=== PATIENT | male | born 2005 | race Caucasian/White ===

== ENCOUNTER 2024-01-17 01:46 | Emergency (ER) | payer MEDICAID, SELFPAY ==
[2024-01-17 01:47] VITALS: BP 115/96; PULSE 132; RESP 16; TEMP 37.3; O2SAT 98; BMI 25.1
--- NOTE | 2024-01-17 02:05 | CT_ITS ---
PROCEDURE INFORMATION: Exam: CT Head Without Contrast Exam date and time: 01/17/2024 2:59 AM Age: 18 years old Clinical indication: Altered mental status/memory loss; Additional info: AMS TECHNIQUE: Imaging protocol: Computed tomography of the head without contrast. Radiation optimization: All CT scans at this facility use at least one of these dose optimization techniques: automated exposure control; mA and/or kV adjustment per patient size (includes targeted exams where dose is matched to clinical indication); or iterative reconstruction. COMPARISON: No relevant prior studies available. FINDINGS: Brain: Prominent hypodense area within the inferior right cerebellar hemisphere best noted on series 6 images 19 through 22. No hemorrhage. Unremarkable white matter. No mass effect. Cerebral ventricles: No ventriculomegaly. Paranasal sinuses: Mucous retention cysts within both maxillary sinuses greater on the right. Mastoid air cells: Visualized mastoid air cells are well aerated. Orbital cavities: The orbital contents are symmetric and normal. Bones: Unremarkable. No acute fracture. Soft tissues: Unremarkable. IMPRESSION: Hypodense region within the inferior right cerebellar hemisphere could represent evolving infarct or edema secondary to an underlying lesion. Further evaluation with unenhanced and enhanced MR is recommended.
[2024-01-17] MEDS: LACTATED RINGERS 1000ML 1,000 ML 999 ML IV (02:16)
[2024-01-17] MEDS: LORazepam 2MG/ML VIAL 2 MG IV (02:16)
[2024-01-17 02:19] LABS: Basophils # 0.1 K/mm3 (0-0.2); Basophils % 0.9 % (0.1-2.0); Eosinophils # 0.1 K/mm3 (0.0-0.4); Eosinophils % 0.7 % (0.1-12.0); Hematocrit 47.6 % (42.0-52.0); Hemoglobin 16.8 g/dL (14.1-18.0); Lymphocytes # 1.9 K/mm3 (0.7-4.5); Lymphocytes % 16.8 % (10-50); Mean Corpuscular HGB Conc 35.4 g/dL (31.8-35.4); Mean Corpuscular Hemoglobin 31.3 pg (27.0-31.2); Mean Corpuscular Volume 88.4 fl (80-94); Mean Platelet Volume 8.3 fl (7.4-10.4); Monocytes # 0.8 K/mm3 (0.1-1.0); Monocytes % 7.5 % (1.7-9.3); Neutrophils # 8.2 K/mm3 (1.8-7.8); Neutrophils % 74.2 % (37.0-80.0); Platelet Count 273 K/mm3 (142-424); Red Blood Count 5.38 M/mm3 (4.60-6.20)
--- NOTE | 2024-01-17 02:22 | ECG_ITS ---
APPROVED REPORT Exam: Resting ECG HR:128 bpm ECG Measurements Heart Rate 128 AXES OH 104 P 67 QRSd 90 QRS 67 QT 302 T -25 QTc 378 Conclusion SINUS TACHYCARDIA WITH SHORT OH INTERVAL WITH OCCASIONAL SUPRAVENTRICULAR PREMATURE COMPLEXES NONSPECIFIC ST & T-WAVE ABNORMALITY No STEMI Electronically signed by : PATRICK MARROQUIN, 01/17/2024 06:33:46
[2024-01-17 02:26] VITALS: BP 138/78; PULSE 139; RESP 17; O2SAT 99
[2024-01-17 02:26] LABS: Albumin Level 5.2 g/dl (3.5-5.0); Chloride 105 mmol/L (98-107); Potassium 3.2 mmoL/L (3.5-5.1); Sodium 140 mmol/L (136-145)
[2024-01-17 02:28] LABS: Alanine Aminotransferase 52 U/L (12-78); Blood Urea Nitrogen 15 mg/dl (9-20); Creatinine Clearance Estimated 129 mL/min (50-200); Estimated Glomerular Filt Rate 95 ml/min (>60); GFR (African American) 115 ML/MIN (>60)
[2024-01-17 02:29] LABS: Albumin/Globulin Ratio 1.5 (1.1-1.8); Alkaline Phosphatase 65 U/L (38-126); Anion Gap 15.2 mEq/L (5-15); Aspartate Amino Transferase 42 U/L (17-59); Bilirubin,Total 1.5 mg/dl (0.2-1.3); Calcium 9.9 mg/dl (8.4-10.2); Carbon Dioxide 23 mmol/L (22.0-30.0); Globulin 3.5 g/dL (1.3-3.2); Glucose 92 mg/dl (74-100); Total Protein,Serum 8.7 g/dl (6.3-8.2)
[2024-01-17 02:31] LABS: Acetaminophen < 10 ug/ml (10-30); Ethyl Alcohol < 10 mg/dl (0-10); Salicylate < 1.0 mg/dL (2.0-20.0)
[2024-01-17 02:46] LABS: Free T4 (Free Thyroxine) 1.86 ng/dl (0.78-2.19)
--- NOTE | 2024-01-17 02:46 | PC.NURSE ---
pt reports he can not give us a urine specimen at this time
--- NOTE | 2024-01-17 02:49 | PC.NURSE ---
patient to radiology
--- NOTE | 2024-01-17 02:56 | PC.NURSE ---
pt to CT at this time
[2024-01-17 03:00] LABS: Thyroid Stimulating Hormone 0.88 uIU/mL (0.465-4.68)
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
--- NOTE | 2024-01-17 03:07 | PC.NURSE ---
pt back to room from CT scan.
[2024-01-17 03:10] VITALS: BP 163/79; PULSE 124; RESP 15; O2SAT 100
[2024-01-17] MEDS: LORazepam 2MG/ML VIAL 1 MG IV (03:31)
[2024-01-17] MEDS: HALOPERIDOL LACTATE 5 MG/ML VIAL 2 MG IV (04:00)
--- NOTE | 2024-01-17 04:18 | ECG_ITS ---
APPROVED REPORT Exam: Resting ECG HR:125 bpm ECG Measurements Heart Rate 125 AXES AR 112 P 67 QRSd 97 QRS 82 QT 400 T 5 QTc 474 Conclusion Sinus tachycardia with occasional PVCs NONSPECIFIC ST & T-WAVE ABNORMALITY No STEMI Interval development of RSR' in aVR Electronically signed by : PATRICK MARROQUIN, 01/18/2024 06:11:16
--- NOTE | 2024-01-17 04:32 | PC.NURSE ---
call to [facility] for transfer to their facility
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
[2024-01-17] MEDS: HALOPERIDOL LACTATE 5 MG/ML VIAL IM (04:59)
[2024-01-17] MEDS: MIDAZOLAM 5MG/ML 1ML VIAL 5 MG IM (04:59)
[2024-01-17] MEDS: SODIUM BICARB 8.4% 50ML SYRINGE (CRASH CART) 50 MEQ IV (05:01)
--- NOTE | 2024-01-17 05:10 | PC.NURSE ---
Report called to Alessandra WOOD at ED
[2024-01-17 05:41] VITALS: BP 105/52; PULSE 101; RESP 22; TEMP 36.6; O2SAT 96
== END 2024-01-17 05:37 | disposition short-term general hospital (02) ==
PROVIDERS: Emergency Provider Emergency Medicine
DX: R00.0 Tachycardia, unspecified (principal); G93.9 Disorder of brain, unspecified; F22 Delusional disorders; R45.1 Restlessness and agitation; F29 Unspecified psychosis not due to a substance or known physiological condition
CPT/HCPCS: 96374; 96375; 96361; 70450; 80053; 80320; 80329; 84439; 84443; 85025; 93005; 99291; J1630; J2060; J2250; J7120